=== PATIENT | female | born 1995 | race Caucasian/White ===

== ENCOUNTER 2017-10-26 11:51 | Inpatient (IN) ==
[2017-10-26 12:27] LABS: Basophils % 0.4 %; Eosinophils # 0.1 K/mcL (0.0-0.6); Eosinophils % 0.6 %; Hematocrit 34.8 % (35.3-44.9); Hemoglobin 10.7 g/dL (11.5-15.4); Immature Granulocytes % 0.5 % (0-4); Lymphocytes # 1.8 K/mcL (0.6-4.6); Lymphocytes % 21.6 %; Mean Corpuscular HGB Conc 30.7 g/dL (31.6-35.5); Mean Corpuscular Hemoglobin 25.4 pg (28.0-33.3); Mean Corpuscular Volume 82.7 fL (83.0-100.0); Mean Platelet Volume 10.7 fL (9.4-12.4); Monocytes # 0.8 K/mcL (0.0-1.3); Monocytes % 10.3 %; Neutrophils # 5.4 K/mcL (1.6-8.9); Platelet Count 213 K/mcL (140-400); Red Blood Count 4.21 M/mcL (3.82-4.97); Red Cell Distribution Width 18.9 % (11.5-14.5); Segmented Neutrophils % 66.6 %
[2017-10-26 12:33] LABS: Amphetamine Screen,Urine Negative ng/mL (Cutoff=1000); Barbiturate Screen,Urine Negative ng/mL (Cutoff=200); Benzodiazepines Screen,Urine Negative ng/mL (Cutoff=200); Cannabinoid Screen,Urine Negative ng/mL (Cutoff = 50); Cocaine Screen,Urine Negative ng/mL (Cutoff= 300); Opiate Screen,Urine Negative ng/mL (Cutoff=300); Phencyclidine Screen,Urine Negative ng/mL (Cutoff=25)
[2017-10-26 12:38] LABS: Protein/Creatinine Ratio,Urine 0.33 mg/mg (0.00-0.20)
[2017-10-26 12:40] LABS: Alanine Aminotransferase 8 Units/L (7-52); Aspartate Amino Transferase 12 Units/L (13-39); BUN/Creatinine Ratio 13 (6-26); Blood Urea Nitrogen 5 mg/dL (6-20); Lactate Dehydrogenase 118 Units/L (140-271); Uric Acid 4.2 mg/dL (2.3-7.6); eGFR For African Americans > 60 (> 60); eGFR For Non-African Americans > 60 (> 60)
--- NOTE | 2017-10-26 12:50 | OB/GYN History & Physical ---
Addendum entered and electronically signed by Shelia Martinez DO 12:23: This is a duplicated H&P. Can you please delete this from the medical record. Original Note: Date of Encounter: 11/03/17 Time of Encounter: 12:44 History of Present Illness HPI: Ms. Valencia is a 22 year old female presenting to the labor and delivery for elevated blood pressure. Patient was seen in the office and there was concern over elevated blood pressure today. Patient states the last 2 visits she has had elevated blood pressure. Today blood pressure was 174/120 and repeat was 146/88. Last week patient's blood pressure is 161/102 and repeat was 142/90. Patient has had no other complications at this . Does not have any past medical conditions. Currently taking iron and [place] vitamins. Patient denies any vaginal bleeding, cramping or discharge. Denies any urinary symptoms. Denies any fevers at home. Patient is group B negative. Patient did have to repeat glucose testing due to elevated one-hour period but three-hour testing was within normal limits. Patient is treponema and HIV negative. Patient is rubella immune. Patient is A +. Patient does state she has been having dizziness and headaches for the past week. She states once in a while she had a dizzy episode but thinks due to getting up too quickly. She does state over the past week she has had some headaches. She does not normally get headaches at home. She denies any chest pain or shortness of breath. She denies any seizure-like activity. She denies any focal neurological deficit. Past Med Surg Social Fam HX - Past Medical History Medical history: no medical history Psychiatric history: no psych history - Social History Smoking Status: Current every day smoker Smokeless Tobacco Status: No Alcohol use: none Drug use: none - Family History Mother Name: bin valencia Age: 45 Living Status: Still Living Hx Family Cardiac Disorders: Yes (htn,chf during preg) Hx Family Respiratory Disorders: No Hx Family Cancer: No Hx Family GI Disorders: No Hx Family Genitourinary Disorders: No Hx Family Endocrine Disorder: No Hx Family Musculoskeletal Disorders: No Hx Family Neuromuscular Disorders: No Hx Family Neurologic Disorders: No Hx Family HEENT Disorders: No Hx Family Autoimmune Disorders: No Hx Family Reproductive Disorders: No Hx Family Psychosocial Disorders: No Hx Family Medical Disorders: No Obstetrical History - Pregnancies : 1 Para: 0 Term: 0 : 0 Ab's: 0 Livin Medications and Allergies Vit #108/Iron/FA [ One Tablet] 1 each PO 10/26/17 [History] Acetaminophen [Tylenol] 650 mg PO Q6HR PRN tablet 10/29/17 [Rx] Benzocaine/Menthol [place] [Dermoplast [place]] 1 appl TP QID PRN aerosol 10/29/17 [Rx] Breast Pump [BREAST PUMP] 1 each .ROUTE AD #1 each 10/29/17 [Rx] Docusate [Colace] 100 mg PO BID #60 capsule 10/29/17 [Rx] Ferrous Sulfate 325 mg PO BIDWM #60 tablet 10/29/17 [Rx] Ibuprofen [Motrin] 600 mg PO Q6HR PRN #60 tablet 10/29/17 [Rx] Lanolin [Lansinoh] 1 appl TP QID PRN oint...g. 10/29/17 [Rx] Vit/FA 1 each PO DAILY tablet 10/29/17 [Rx] 3 Allergy/AdvReac Type Severity Reaction Status Date / Time sulfamethoxazole Allergy Rash Verified 01/22/16 14:17 [From Bactrim] trimethoprim [From Bactrim] Allergy Rash Verified 01/22/16 14:17 Review of System OB All systems PM: reviewed and no additional remarkable complaints except as stated Exam - Constitutional Constitutional: well developed, well nourished, no acute distress, average body habitus - HEENT HEENT: Normocephaly, Mucus Membranes Moist - Lungs Respiratory exam: CTAB - Cardiovascular Cardiovascular exam: RRR - Abdomen Abdomen: Present: bowel sounds normal, gravid, non tender - Extremities Extremities exam: normal inspection - Uterus Uterus exam: Present: normal size, normal contour Results Result Diagrams: 10/29/17 07:12 10/26/17 12:17 Abnormal lab results Hgb 10.7 g/dL (11.5-15.4) L 10/26/17 12:17 Hct 34.8 % (35.3-44.9) L 10/26/17 12:17 MCV 82.7 fL (83.0-100.0) L 10/26/17 12:17 MCH 25.4 pg (28.0-33.3) L 10/26/17 12:17 MCHC 30.7 g/dL (31.6-35.5) L 10/26/17 12:17 RDW 18.9 % (11.5-14.5) H 10/26/17 12:17 BUN 5 mg/dL (6-20) L 10/26/17 12:17 Creatinine 0.38 mg/dL (0.60-1.20) L 10/26/17 12:17 AST 12 Units/L (13-39) L 10/26/17 12:17 Lactate Dehydrogenase 118 Units/L (140-271) L 10/26/17 12:17 Protein/Creatinin Ratio 0.33 mg/mg (0.00-0.20) H 10/26/17 12:17 All other labs normal. - VTE Reasons for not Prescribing Prophylaxis: Treatment not Indicated - Low risk for VTE - Attending Attestation I did not examine this patient and do not agree with the documentation provided. An H+P was performed by Valencia Mcneil CNM. Please refer to it for further documentation.
[2017-10-26] MEDS ORDERED: Naloxone 0.4 MG/ML INJ IVP PRN (13:04)
[2017-10-26] MEDS ORDERED: Famotidine 20 MG/2 ML VIAL IVP PRN (13:04)
[2017-10-26] MEDS ORDERED: Ringers Solution, Lactated 1,000 ML IVC SCH (13:15)
--- NOTE | 2017-10-26 14:58 | Anesthesia Evaluation PreOp ---
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 Other Medical History: Denies Any Significant HX Anesthesia History: No Prior Anesthetic Complications (No family history of reactions to anesthetics) : Yes (37 plus 6, g1) Alcohol Use: none Drug use: none Medications and Allergies Ferrous Sulfate 325 mg PO DAILY 10/26/17 [History] Vit #108/Iron/FA [ One Tablet] 1 each PO 10/26/17 [History] 3 Allergy/AdvReac Type Severity Reaction Status Date / Time sulfamethoxazole Allergy Rash Verified 01/22/16 14:17 [From Bactrim] trimethoprim [From Bactrim] Allergy Rash Verified 01/22/16 14:17 - Meds/Allergy Pre-op Review Medications Reviewed: Yes Allergies Reviewed: Yes Beta Blockers on Current Med List: No Anesthesia Results - Labs 10/26/17 12:17 10/26/17 12:17 Anesthesia Exam O2 Sat Height 1.63 m Height 1.63 m Weight 37.557 kg Weight 82.8 kg bp 132/72 hr 98 Height: 64 Weight: 83 - HEENT Pupil (Motor): Pupils equal Mallampati: II Teeth: Normal Oral Opening: Greater than 3 - KNOCKOUT MACHINE OPERATOR LOC: Oriented KNOCKOUT MACHINE OPERATOR Motor: Normal RUE, Normal LUE, Normal RLE, Normal LLE, Normal Face KNOCKOUT MACHINE OPERATOR Sensory: Normal: RUE, LUE, RLE, LLE, Face - Cardiac Rhythm: Regular Murmur: None JVD: No Carotid Bruit: No - Pulmonary Breath Sounds: bilateral Clear Respiratory Effort: Symmetrical Anesthesia Assess/Plan ASA Score: 2 Modified Bethany Scale for Level of Consciousness: Cooperative, oriented, and tranquil Anesthetic Plan: Regional Autologous Blood: No Monitoring Plan: Standard Monitors Recovery Plan: PACU
--- NOTE | 2017-10-26 15:03 | OB/GYN History & Physical ---
Date of Encounter: 10/26/17 Time of Encounter: 13:30 Assessment and Plan (1) 37 weeks gestation of Current visit: Yes Status: Acute (2) induced hypertension Current visit: Yes Status: Acute Admit to L&D for induction of labor d/t PIH PIH labs Cervidil Pain control Anesthesia consult for potential epidural GBS - Anticipate vaginal delivery Discussed potential for long induction time Plan of care per consult with Dr. Lala Qualifiers: Trimester: third trimester Qualified Code(s): O13.3 - Gestational [ -induced] hypertension without significant proteinuria, third trimester History of Present Illness Chief complaint: Hypertension/facial swelling HPI: Ms. Valencia is a 22 year old who presents from Dr. Montoya's office with c/o hypertension in the office and proteinuria today. has been complicated by suspected macrosomia. Pt denies VB, LOF, discharge, contractions, vision changes, RUQ pain. Reports she is feeling relatively well today. Past Med Surg Social Fam HX - Past Medical History Medical history: no medical history Psychiatric history: no psych history - Social History Smoking Status: Current every day smoker Smokeless Tobacco Status: No Alcohol use: none Drug use: none - Family History Mother Name: bin valencia Age: 45 Living Status: Still Living Hx Family Cardiac Disorders: Yes (htn,chf during preg) Hx Family Respiratory Disorders: No Hx Family Cancer: No Hx Family GI Disorders: No Hx Family Genitourinary Disorders: No Hx Family Endocrine Disorder: No Hx Family Musculoskeletal Disorders: No Hx Family Neuromuscular Disorders: No Hx Family Neurologic Disorders: No Hx Family HEENT Disorders: No Hx Family Autoimmune Disorders: No Hx Family Reproductive Disorders: No Hx Family Psychosocial Disorders: No Hx Family Medical Disorders: No Obstetrical History - Pregnancies : 1 Para: 0 Term: 0 : 0 Ab's: 0 Livin Medications and Allergies Ferrous Sulfate 325 mg PO DAILY 10/26/17 [History] Vit #108/Iron/FA [ One Tablet] 1 each PO 10/26/17 [History] 3 Allergy/AdvReac Type Severity Reaction Status Date / Time sulfamethoxazole Allergy Rash Verified 01/22/16 14:17 [From Bactrim] trimethoprim [From Bactrim] Allergy Rash Verified 01/22/16 14:17 Review of System OB All systems PM: reviewed and no additional remarkable complaints except as stated Exam - Constitutional Constitutional: well developed, well nourished, no acute distress, mild distress - HEENT HEENT: PERRL, Mucus Membranes Moist - Neck Neck exam: full ROM, trachea midline - Lungs Respiratory exam: CTAB - Cardiovascular Cardiovascular exam: RRR, +S1, +S2 - Abdomen Abdomen: Present: bowel sounds normal, gravid, non tender - Extremities Extremities exam: full ROM, pedal edema Deep Tendon Reflex Grade: 2+ Normal Results Result Diagrams: 10/26/17 12:17 10/26/17 12:17 Abnormal lab results Hgb 10.7 g/dL (11.5-15.4) L 10/26/17 12:17 Hct 34.8 % (35.3-44.9) L 10/26/17 12:17 MCV 82.7 fL (83.0-100.0) L 10/26/17 12:17 MCH 25.4 pg (28.0-33.3) L 10/26/17 12:17 MCHC 30.7 g/dL (31.6-35.5) L 10/26/17 12:17 RDW 18.9 % (11.5-14.5) H 10/26/17 12:17 BUN 5 mg/dL (6-20) L 10/26/17 12:17 Creatinine 0.38 mg/dL (0.60-1.20) L 10/26/17 12:17 AST 12 Units/L (13-39) L 10/26/17 12:17 Lactate Dehydrogenase 118 Units/L (140-271) L 10/26/17 12:17 Protein/Creatinin Ratio 0.33 mg/mg (0.00-0.20) H 10/26/17 12:17 All other labs normal. - VTE Reasons for not Prescribing Prophylaxis: Treatment not Indicated - Low risk for VTE
[2017-10-26] MEDS: *HR* Nalbuphine 20 MG/ML AMPUL IVP PRN (22:08)
[2017-10-27] MEDS: *HR* Nalbuphine 20 MG/ML AMPUL IVP PRN (01:16)
[2017-10-27] MEDS ORDERED: Epidural Premix (fent/bupiv) 110 ML EP ONE ×4 (01:27→20:12)
[2017-10-27] MEDS ORDERED: EPHEDrine 50 MG/ML VIAL IVP PRN (02:02)
--- NOTE | 2017-10-27 02:06 | Anesthesia Procedures ---
Date of Encounter: 10/27/17 Time of Encounter: :30 Procedures: Anesthesia - Epidural/Spinal Patient ID/Chart reviewed: Yes Patient examined: Yes OB Eval: Contractions: Non-stressed pattern Consent Obtained: Yes Supplemental Oxygen: None/Room Air Site Prep: Aseptic Technique Patient position: upright Local Anesthetic: Lidocaine 1% Amount of Local Anesthetic used: 3 Touhy Needle Gauge: 18 Touhy Needle Depth (cm): 4 Catheter Depth at Skin (cm): 10 Test Dose (1.5% Lido + Epi): Volume given (mls): 3 Test Dose Result: Negative Loading Dose Administered: Thru Touhy Needle Infusion Med: 0.125% Bupivacaine w/ 2 mcg/ml Fentanyl Infusion Rate (mls/hr): 14 Interspace Used: L2-L3 Loss of Resistance (CHAIM): Yes Blood: No CSF: No Paresthesia: No
[2017-10-27] MEDS ORDERED: Epidural Premix (fent/bupiv) 110 ML EP SCH (02:15)
[2017-10-27] MEDS ORDERED: miSOPROStol 25 MCG TABLET PO PRN (06:00)
--- NOTE | 2017-10-27 06:18 | OB Labor Progress Note ---
Date of Encounter: 10/27/17 Time of Encounter: 06:15 Labor Progress Note - Subjective Subjective: Pt reports increase in contractions and pressure - Vital Signs Vital Signs: BP 117-136/86-88 P 80s-100s - Cervix Cervix: 2/70/-1 - Heart Tones Heart Tones: Category I tracing Baseline 130s Moderate variability Accelerations present - [place]: Contractions 2-4 - Plan Plan: Continue routine labor management GBS negative Pain controlled at this time May have epidural upon request Nubain for pain as needed per orders Administer cytotec 50mg po Consider pitocin after cytotec removal Anticipate vaginal delivery Dr. Lala aware of POC and agrees
--- NOTE | 2017-10-27 08:51 | OB Labor Progress Note ---
Date of Encounter: 10/27/17 Time of Encounter: 08:49 Labor Progress Note - Subjective Subjective: Resting comfortable in bed with epidural. - Cervix Cervix: 3/50/-2 - Heart Tones Heart Tones: 125/moderate/+accels/-decels - [place]: 2-4 - Interventions Interventions: Cervical voss placed - Plan Plan: Cervical voss Once cytotec time is complete transition to pitocin Plan of care discussed with Dr. hilda GREWAL
[2017-10-27] MEDS: Ondansetron 4 MG/2 ML VIAL IVP PRN ×2 (08:57→17:40)
--- NOTE | 2017-10-27 14:11 | OB Labor Progress Note ---
Date of Encounter: 10/27/17 Time of Encounter: 14:08 Labor Progress Note - Subjective Subjective: Pt resting comfortable with epidural. - Vital Signs Vital Signs: 125/74, 139/76 - Cervix Cervix: 4-5/50/-3 - Heart Tones Heart Tones: 120/moderate/+accels/-decels - [place]: 2-4 - Interventions Interventions: AROM for clear fluid and IUPC placed - Plan Plan: Start pitocin per policy Anticipate Dr. Cheng updated on plan of care
[2017-10-27] MEDS ORDERED: Oxytocin 20 units/ LR 1000 mL 20 UNIT/1,000 ML BAG IVC SCH (14:15)
--- NOTE | 2017-10-27 20:43 | OB Labor Progress Note ---
Date of Encounter: 10/27/17 Time of Encounter: 20:37 Labor Progress Note - Subjective Subjective: Comfortable with epidural - Vital Signs Vital Signs: 126/89 - Heart Tones Heart Tones: 120/moderate/+accels/early and variable. - [place]: q2 - Plan Plan: Continue pitocin per policy Anticipate
[2017-10-28] MEDS ORDERED: Lidocaine 1% 20 ML MDV ONE (04:12)
--- NOTE | 2017-10-28 04:53 | OB/GYN Procedure Note ---
Delivery - Delivery Date: 10/28/17 Provider: Leigh Ann Proctor (Juan) Intrapartum events: prolonged labor- > = 20hr Delivery induction: AROM, oxytocin, voss, misoprostol, cervidil Delivery monitor: external FHT, external uterine, internal FHT, internal uterine Anesthesia: local, epidural Estimated Blood Loss: 500 - (s) A Delivery Date: 10/28/17 Delivery Time: 03:58 Presentation: vertex Position: OA Route of delivery: Gender: Male Viability: Viable Pounds: 9 Ounces: 3 Weight Gram: 4175 kg at 1 minute: 8 at 5 mins: 9 Shoulder Dystocia: not encountered Specimens collected: cord blood Placenta: spontaneous Cord: 3 umbilical vessels - Repair Episiotomy: none Laceration Description: Perineal - 2nd Degree - Complications Delivery complications: none Delivery comments: Induction of labor with cervidil, cytotec, voss and pitocin, progressed to complete, began maternal bearing down efforts to of liveborn male, vertex delivered OA, shoulders and body easily followed, no nuchal cord or shoulder dystocia encountered. Vigorous placed on maternal abdomen APGARS 8/9. placenta delivered spontaneous (spann) complete on inspection,fundus massaged until firm. Pitocin started per policy. 2nd degree laceration repaired with 3-[address] Cheng at delivery for diagnosis of macrosomia. - Disposition Mom disposition: stable in LDR [place] disposition: stable in LDR
[2017-10-28] MEDS ORDERED: Oxytocin 20 units/ LR 1000 mL 20 UNIT/1,000 ML BAG IVC SCH (05:19)
[2017-10-28] MEDS ORDERED: Benzocaine/Menthol 56 GM AEROSOL SPRAY TP PRN (05:19)
[2017-10-28] MEDS ORDERED: Acetaminophen 325 MG TABLET PO PRN (05:19)
[2017-10-28] MEDS ORDERED: Lanolin 7 G OINT...G. TP PRN (05:19)
[2017-10-28] MEDS: Prenatal Vit/FA 1 EACH TABLET PO SCH (08:18)
[2017-10-28] MEDS: Ibuprofen 600 MG TABLET PO PRN ×2 (08:18→20:01)
[2017-10-29] MEDS: Ibuprofen 600 MG TABLET PO PRN (07:13)
[2017-10-29 07:32] LABS: Basophils % 0.4 %; Eosinophils # 0.1 K/mcL (0.0-0.6); Hematocrit 29.5 % (35.3-44.9); Immature Granulocytes % 0.6 % (0-4); Lymphocytes # 1.9 K/mcL (0.6-4.6); Lymphocytes % 18.5 %; Mean Corpuscular HGB Conc 30.2 g/dL (31.6-35.5); Mean Corpuscular Hemoglobin 25.4 pg (28.0-33.3); Mean Corpuscular Volume 84.3 fL (83.0-100.0); Mean Platelet Volume 10.9 fL (9.4-12.4); Monocytes % 9.6 %; Neutrophils # 7.1 K/mcL (1.6-8.9); Platelet Count 221 K/mcL (140-400); Red Cell Distribution Width 19.9 % (11.5-14.5); Segmented Neutrophils % 69.9 %
[2017-10-29 07:44] LABS: Hemoglobin 8.9 g/dL (11.5-15.4)
[2017-10-29 08:37] VITALS: BP 115/79
[2017-10-29] MEDS: Prenatal Vit/FA 1 EACH TABLET PO SCH (08:50)
--- NOTE | 2017-10-29 10:01 | Discharge Summary ---
Date of Encounter: 10/29/17 Time of Encounter: 09:59 - Discharge Diagnosis (1) Vaginal delivery Priority: Primary Status: Acute Comments: Meeting all milestones, pain well managed on po medication, desires discharge. (2) induced hypertension Priority: Primary Status: Acute Qualifiers: Trimester: third trimester Qualified Code(s): O13.3 - Gestational [ -induced] hypertension without significant proteinuria, third trimester - Discharge Medications Prescriptions: Ibuprofen [Motrin] 600 mg PO Q6HR PRN #60 tablet PRN Reason: Cramping Docusate [Colace] 100 mg PO BID #60 capsule Ferrous Sulfate 325 mg PO BIDWM #60 tablet Home Medications: Vit #108/Iron/FA [ One Tablet] 1 each PO 10/26/17 [History] Acetaminophen [Tylenol] 650 mg PO Q6HR PRN tablet 10/29/17 [Rx] Benzocaine/Menthol [place] [Dermoplast [place]] 1 appl TP QID PRN aerosol 10/29/17 [Rx] Breast Pump [BREAST PUMP] 1 each .ROUTE AD #1 each 10/29/17 [Rx] Docusate [Colace] 100 mg PO BID #60 capsule 10/29/17 [Rx] Ferrous Sulfate 325 mg PO BIDWM #60 tablet 10/29/17 [Rx] Ibuprofen [Motrin] 600 mg PO Q6HR PRN #60 tablet 10/29/17 [Rx] Lanolin [Lansinoh] 1 appl TP QID PRN oint...g. 10/29/17 [Rx] Vit/FA 1 each PO DAILY tablet 10/29/17 [Rx] Allergies/Adverse Reactions: 3 Allergy/AdvReac Type Severity Reaction Status Date / Time sulfamethoxazole Allergy Rash Verified 01/22/16 14:17 [From Bactrim] trimethoprim [From Bactrim] Allergy Rash Verified 01/22/16 14:17 Data Procedures and tests throughout hospitalization: Laboratory Tests 10/26/17 10/26/17 10/26/17 12:17 12:17 12:17 WBC 8.2 RBC 4.21 Hgb 10.7 L Hct 34.8 L MCV 82.7 L MCH 25.4 L MCHC 30.7 L RDW 18.9 H Plt Count 213 MPV 10.7 Immature Gran % 0.5 Seg Neutrophils % 66.6 Lymphocytes % 21.6 Monocytes % 10.3 Eosinophils % 0.6 Basophils % 0.4 Neutrophils # 5.4 Lymphocytes # 1.8 Monocytes # 0.8 Eosinophils # 0.1 Basophils # 0.0 BUN 5 L Creatinine 0.38 L Est GFR ( Amer) > 60 Est GFR (Non-Af Amer) > 60 BUN/Creatinine Ratio 13 Uric Acid 4.2 AST 12 L ALT 8 Lactate Dehydrogenase 118 L Urine Creatinine Protein/Creatinin Ratio Urine Total Protein Urine Opiates Screen Negative Ur Barbiturates Screen Negative Ur Phencyclidine Scrn Negative Ur Amphetamines Screen Negative U Benzodiazepines Scrn Negative Urine Cocaine Screen Negative U Marijuana (THC) Screen Negative 10/26/17 10/29/17 12:17 07:12 WBC 10.1 RBC 3.50 L Hgb 8.9 L D Hct 29.5 L MCV 84.3 MCH 25.4 L MCHC 30.2 L RDW 19.9 H Plt Count 221 MPV 10.9 Immature Gran % 0.6 Seg Neutrophils % 69.9 Lymphocytes % 18.5 Monocytes % 9.6 Eosinophils % 1.0 Basophils % 0.4 Neutrophils # 7.1 Lymphocytes # 1.9 Monocytes # 1.0 Eosinophils # 0.1 Basophils # 0.0 BUN Creatinine Est GFR ( Amer) Est GFR (Non-Af Amer) BUN/Creatinine Ratio Uric Acid AST ALT Lactate Dehydrogenase Urine Creatinine 96 Protein/Creatinin Ratio 0.33 H Urine Total Protein 32 Urine Opiates Screen Ur Barbiturates Screen Ur Phencyclidine Scrn Ur Amphetamines Screen U Benzodiazepines Scrn Urine Cocaine Screen U Marijuana (THC) Screen Labs on day of discharge: Labs from last 24 hours 10/29/17 07:12 WBC 10.1 RBC 3.50 L Hgb 8.9 L D Hct 29.5 L MCV 84.3 MCH 25.4 L MCHC 30.2 L RDW 19.9 H Plt Count 221 MPV 10.9 Immature Gran % 0.6 Seg Neutrophils % 69.9 Lymphocytes % 18.5 Monocytes % 9.6 Eosinophils % 1.0 Basophils % 0.4 Neutrophils # 7.1 Lymphocytes # 1.9 Monocytes # 1.0 Eosinophils # 0.1 Basophils # 0.0 Date of admission: 10/26/17 11:51 Primary care physician: Vernon Alex DO Consults: 10/28/17 05:19 Consult to Cardiac Care Unit Nurse [CONS] Routine Comment: Vaginal delivery, consult needed Discharging clinician: Leigh Ann Proctor Anticipated date of discharge: 10/29/17 - Patient Status Disposition: Home, Self-Care Condition: Good Functional capacity at discharge: independent ambulation Overall status at discharge: patient is back to baseline - Discharge Instructions Follow Up With: Vernon Alex DO [Primary Care Provider] - - Diet and Activity Activity: increase activity as tolerated Diet: regular diet Hospital Course Reason for admission: induction of labor Delivery: Episiotomy: none Laceration: 2nd degree Other procedures: none complications: none Discharge diagnosis: IUP at term delivered [place] baby: male Hospital course: Delivery - Delivery Date: 10/28/17 Provider: Leigh Ann Proctor ([place]) Intrapartum events: prolonged labor- > = 20hr Delivery induction: AROM, oxytocin, voss, misoprostol, cervidil Delivery monitor: external FHT, external uterine, internal FHT, internal uterine Anesthesia: local, epidural Estimated Blood Loss: 500 - (s) A Infant Delivery Date: 10/28/17 Infant Delivery Time: 03:58 Presentation: vertex Position: OA Route of delivery: Gender: Male Viability: Viable Pounds: 9 Ounces: 3 Weight Gram: 4175 kg at 1 minute: 8 at 5 mins: 9 Shoulder Dystocia: not encountered Specimens collected: cord blood Placenta: spontaneous Cord: 3 umbilical vessels - Repair Episiotomy: none Laceration Description: Perineal - 2nd Degree - Complications Delivery complications: none Delivery comments: Induction of labor with cervidil, cytotec, voss and pitocin, progressed to complete, began maternal bearing down efforts to of liveborn male, vertex delivered OA, shoulders and body easily followed, no nuchal cord or shoulder dystocia encountered. Vigorous infant placed on maternal abdomen APGARS 8/9. placenta delivered spontaneous (spann) complete on inspection,fundus massaged until firm. Pitocin started per policy. 2nd degree laceration repaired with 3-[address] Cheng at delivery for diagnosis of macrosomia. - Disposition Mom disposition: stable in PP and appropriate for discharge Time Attestation: Total time spent providing and/or coordinating discharge services: Time Spent: Less than 30 minutes Exam - Constitutional Vitals: Temp Pulse Resp BP Pulse Ox 98.3 F 103 12 115/79 96 10/29/17 08:36 10/29/17 08:36 10/29/17 08:36 10/29/17 08:36 10/29/17 08:36 General appearance IM: A&O X 3 - Respiratory Respiratory exam: Present: CTAB - Cardiovascular Cardiovascular exam IM: Present: RRR - GI/Abdominal GI/Abdominal exam IM: normal bowel sounds, soft - Uterine Tone: Firm Uterus Position: At Umbilicus - Extremities Exam Extremities exam IM: Present: normal capillary refill, normal inspection, pedal edema - Neurological Exam Neurological exam: normal gait, oriented X3 - Psychiatric Additional comments: Reports good mood.
== END 2017-10-29 11:41 | disposition home or self-care (01) | DRG 775 ==
LOC: 1NENULAB → OBSVTOIN 11:51 → 1NENUOBS 10-28 05:22
PROVIDERS: ADMIT Obstetrics & Gynecology; ATTEND Obstetrics & Gynecology

== ENCOUNTER 2019-01-23 17:40 | Inpatient (IN) ==
--- NOTE | 2019-01-23 18:36 | Emergency Department Note ---
Disposition Clinical Impression: Suicidal ideation, Depression Disposition: Admitted As Inpatient Condition: Fair Time of Disposition: 18:48 Psych HPI - General Chief Complaint: ED Psychiatric Symptoms Stated Complaint: Psych Time Seen by Provider: 01/23/19 17:44 Source: EMS Mode of arrival: EMS Limitations: no limitations Nursing Notes Reviewed: Yes Vital Signs Reviewed: Yes - History of Present Illness HPI Narrative: Patient presents for psychiatric evaluation. Patient is medically screen in outside facility patient has been describing depression. She delivered a baby 1 year ago.. She denies any other complaints or issues at this time. Pt complaint: suicidal ideation, feels depressed Onset (ago): day(s) Duration: constant History of similar episodes: Yes Improves with: none Worsens with: none Alleged intoxication: No Associated Psychiatric Symptoms: depression, suicidal ideation Associated symptoms: Reports: denies other symptoms Treatments prior to arrival: none Self harm or harm to others: admits thoughts of self harm - Related Data Allergies Allergy/AdvReac Type Severity Reaction Status Date / Time sulfamethoxazole Allergy Rash Verified 01/22/16 14:17 [From Bactrim] trimethoprim [From Bactrim] Allergy Rash Verified 01/22/16 14:17 All systems ED: reviewed and negative except as stated. Review of Systems: As Per HPI Constitutional: Denies: fever, chills, weakness ENT ED: Denies: congestion Cardiovascular: Denies: chest pain, palpitations, dyspnea on exertion, orthopnea Respiratory: Denies: cough, dyspnea, wheezes, hemoptysis Gastrointestinal: Denies: abdominal pain, nausea, vomiting, diarrhea Genitourinary: Denies: urgency, dysuria, frequency Musculoskeletal: Denies: back pain, neck pain Integumentary: Denies: rash Neurological: Denies: headache, weakness Psychiatric: Reports: depression, suicidal thoughts Endocrine: Denies: fatigue Past Medical History - Past Medical History Attestation: Yes The following information was validated with the patient. Source: patient Medical history: Reports: no medical history Surgical history: Reports: no surgical history, other ([place] teeth) Psychiatric history: Reports: no psych history - Social History Smoking Status: Current every day smoker Smokeless Tobacco Status: No Alcohol use: Reports: none Drug use: Reports: marijuana Physical Exam - General Limitations: no limitations General appearance: alert, in no apparent distress - ENT ENT exam: normal exam, normal oropharynx, mucous membranes moist - Neck Neck exam: Present: normal inspection, full ROM, trachea midline. Absent: tenderness, meningismus, lymphadenopathy - Chest Chest inspection: Present: normal inspection, symmetric chest wall rise. Absent: tenderness - Respiratory Respiratory exam: Present: normal lung sounds bilaterally. Absent: respiratory distress, accessory muscle use - Cardiovascular Cardiovascular exam: Present: regular rate, normal rhythm, normal heart sounds - Abdominal Exam Abdominal exam: Present: soft, Non-Tender, normal bowel sounds. Absent: tenderness, distention, guarding, rebound, rigidity, Odonnell's sign, Rovsing's sign, tenderness at McBurney's Point - Extremities Exam Extremities exam: Present: normal inspection, full ROM, normal capillary refill. Absent: tenderness - Back Exam Back exam: Present: normal inspection, full ROM. Absent: tenderness - Neurological Exam Neurological exam: Present: alert, oriented X3, CN II-XII intact, normal gait - Psychiatric Psychiatric exam: Present: depressed, suicidal ideation - Skin Skin exam: Present: warm, dry, intact, normal color Course Course Narrative: Patient seen and examined the time of arrival. See history of present illness. 23-year-old female presents emergency room with suicidal ideation. She was screened and evaluated outside facility and medically cleared. She is transferred to our facility for continuation of care and management. Patient had the psychiatric team contacted on arrival for their interpretation of the presentation. On my evaluation patient is resting in the bed. She is tearful. She does understand the context of her presentation this time. She does not have an active plan. She denies any ingestion or potential traumatic injury. The baby that she is caring for is at home with the father and is safe at this time. Patient feels safe taking care of the child. Vital signs are stable. Patient is comfortable. Repeat physical exam is unremarkable. Patient will be evaluated by the psychiatric team in the disposition determined. No other acute findings noted during this treatment course. Labs reviewed from the outside facility and they are positive for marijuana but otherwise no other acute abnormalities. - Reevaluation(s) Reevaluation #1: Patient is currently stable. Psychiatric team is evaluated. Patient will be admitted for continuation of care. No other acute issues at this time. Patient will be monitoring emergency room until admission process is completed Time: 18:46 Vital Signs Temperature 98.6 F 01/23/19 17:43 Pulse Rate 97 01/23/19 17:43 Respiratory Rate 18 01/23/19 17:43 Blood Pressure 118/90 01/23/19 17:43 O2 Sat by Pulse Oximetry 97 01/23/19 17:43 Temperature 98.6 F 01/23/19 17:43 Pulse Rate 97 01/23/19 17:43 Respiratory Rate 18 01/23/19 17:43 Blood Pressure 118/90 01/23/19 17:43 O2 Sat by Pulse Oximetry 97 01/23/19 17:43 Oxygen Delivery Oxygen Delivery Room Air Psych - MDM Narrative Medical decision making narrative: Suicidal ideation - Medical Records Medical records reviewed: Yes I reviewed the patient's medical records. - Lab Data Lab results reviewed: Yes I reviewed the patient's lab results. Psychiatric Medical Clearance - Medical Clearance Checklist Does the patient have a NEW psychiatric condition?: No Any abnormalities indicating possible medical illness?: No Any history of medical issues?: No Medical History: No Social History Section defined Any abnormal vital signs prior to transfer?: No Current Vitals: Last Vital Signs Temp 98.6 F 01/23/19 17:43 Pulse 97 01/23/19 17:43 Resp 18 01/23/19 17:43 BP 118/90 01/23/19 17:43 Pulse Ox 97 01/23/19 17:43 Is the patient intoxicated or cognitively impaired?: No Any abnormalities on the physical exam?: No Any abnormal labs?: No Does the patient require durable medical equiptment?: No Is the patient ambulatory?: Yes Is the patient a fall risk?: No Has the patient been medically cleared?: Yes Any acute medical condition require Tx prior to transfer?: No Statement of Medical Clearance: I have evaluated the patient, reviewed diagnostic information, and certify that the patient's medical condition is sufficiently stable that transfer to the psychiatric unit does not pose a significant risk of deterioration.
[2019-01-23] MEDS ORDERED: *HR* LORazepam 1 MG TABLET PO PRN (18:37)
[2019-01-23] MEDS ORDERED: Acetaminophen 325 MG TABLET PO PRN (18:37)
[2019-01-23] MEDS ORDERED: MOM Conc 10 ML UD.LIQ PO PRN (18:37)
[2019-01-23] MEDS ORDERED: Mag Hydrox/Al Hydrox/Simeth 30 ML UDC PO PRN (18:37)
[2019-01-23] MEDS ORDERED: *HR* LORazepam 2 MG/ML VIAL IM PRN (18:37)
[2019-01-23] MEDS ORDERED: Haloperidol Lactate 5 MG/ML VIAL IM PRN (18:37)
[2019-01-23] MEDS: traZODone 50 MG TABLET PO PRN (21:12)
[2019-01-23] MEDS: hydrOXYzine pamoate 25 MG CAPSULE PO PRN (21:12)
--- NOTE | 2019-01-24 09:25 | Psychiatry History & Physical ---
Date of Encounter: 01/24/19 Time of Encounter: 09:23 History of Present Illness Patient Stated Chief Complaint: "I am thinking of killing myself" Medicare Admission Attestation: For traditional Medicare patients the provided hospital inpatient services are reasonable and necessary and in the case of services not specified as inpatient-only under 42 CFR 419.22 (n), that they are appropriately provided as inpatient services in accordance 42 CFR 412.3. For Critical Access Hospital the patient may reasonably be expected to be discharged or transferred to a hospital within 96 hours after admission to the Critical Access Hospital. Admitted From: Home Plans for Post Hospital Care: Home History of Present Illness: Ms. Valencia is a 23 year old female who presented emergency room with kristy cidal ideation. She was screened and evaluated outside facility and medically cleared. She is transferred to our facility for continuation of care and management. She reports that she has a plan to cut herself with a knife. She reports that she has been staying home with her child who is one year and 3 months of age as well as her sister's 2-year-old daughter and 6-year-old son. She says she feels overwhelmed by this she sad with decreased interest, feelings of guilt and worthlessness, low energy, decreased interest, poor sleep, decreased appetite. She denies thoughts of harming the child or her niece or nephew or anyone else. She denies auditory or visual hallucinations or paranoia. She denies a history of manic symptoms. She reports anxiety with fear about leaving the house fear that she or her child may be killed. She reports occasional panic attacks with chest pain and "blanking out". She is tearful. She does understand the context of her presentation this time. She denies any ingestion or potential traumatic injury. The baby that she is caring for is at home with the father and is safe at this time. Patient feels safe taking care of the child. Past Med Surg Social Fam HX - Past Medical History Medical history: no medical history - Past Psychiatric History Psychiatric history: Denies: prior suicide attempt, previous psychiatric hospitalization Past psychiatric history details: Patient reports that she has had depression off and on since her childhood but it has been consistent since the of her child one year and 3 months ago. She said that she had wanted to seek treatment in the past but her parents were against this because her mother has previously abused anxiety medications. She said that in her freshman year of high school she had some cutting but said that this was to get attention and help from her family. She denies suicide attempts in the past. She has never seen a psychiatrist or therapist. She is never been in psychiatric hospitalization. Family psychiatric history: Yes Family Psychiatric History Details: Her mother has been diagnosed with bipolar disorder and anxiety and she abused her anxiety medications and alcohol. She said her sister also has anxiety and is on some medication. Family History of Suicide: None - Past Surgical History Surgical History: no surgical history, other ([place] teeth) - Social History Smoking Status: Light tobacco smoker Smokeless Tobacco Status: No Alcohol use: none Drug use: marijuana Occupational status: unemployed Current living situation: Home, With Family Activity Level: Independent ambulation Recent Out of Country Travel Within the Last 8 Weeks: No Exposure or Possible Exposure to Illness During Travel: No Additional social history: Patient lives in her parents house but they only live they are part of the time and travel back and forth from [place]. Her sister and her sister's 2 children and her brother also live in the home. She is not but is in a relationship with the child's father who is a full-time student. 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 She often has to to watch her sister's 2 children. - Family History Mother Adopted: [place]: bin valencia Age: 46 Family Member Ethnicity: Non- Living Status: Still Living Hx Family Cardiac Disorders: Yes (CHF) Hx Family Respiratory Disorders: No Hx Family Cancer: No Hx Family GI Disorders: No Hx Family Genitourinary Disorders: No Hx Family Endocrine Disorder: No Hx Family Musculoskeletal Disorders: No Hx Family Neuromuscular Disorders: No Hx Family Neurologic Disorders: No Hx Family HEENT Disorders: No Hx Family Autoimmune Disorders: No Hx Family Reproductive Disorders: No Hx Family Psychosocial Disorders: Yes (anxiety, bipolar) Hx Family Medical Disorders: No Medications & Allergies No Known Home Drugs 01/23/19 [History] Allergy/AdvReac Type Severity Reaction Status Date / Time sulfamethoxazole Allergy Rash Verified 01/23/19 19:35 [From Bactrim] trimethoprim [From Bactrim] Allergy Rash Verified 01/23/19 19:35 Review of Systems Constitutional: Denies: fever Eyes: Denies: eye pain Ears, Nose, Throat: Denies: ear pain Cardiovascular: Denies: chest pain Respiratory: Denies: cough Gastrointestinal: Denies: abdominal pain Genitourinary female: Denies: urgency Musculoskeletal: Denies: back pain Integumentary: Denies: rash Neurological: Denies: headache Psychiatric: Reports: depression, anxiety, abnormal sleep pattern, suicidal ideation, change in appetite, difficulty concentrating, hopelessness, panic attacks Endocrine: Denies: fatigue, heat or cold intolerance Hematologic/Lymphatic: Denies: easy bruising, lymphadenopathy Allergic/Immunologic: Denies: urticaria, itchy eyes Exam - HEENT Head exam IM: Present: atraumatic Eye exam IM: Present: normal appearance ENT exam IM: Present: mucous membranes moist - Neurological Neurological exam: Present: CN II-XII intact (Grossly) - Respiratory Respiratory exam IM: Absent: respiratory distress - GI/Abdominal GI/Abdominal exam IM: Present: no peritoneal signs - Extremities Extremities exam IM: Present: full ROM - Skin Skin exam IM: Absent: cyanosis - Constitutional Vitals: Temp Pulse Resp BP Pulse Ox 97.5 F L 75 16 124/89 98 01/24/19 09:00 01/24/19 09:00 01/24/19 09:00 01/24/19 09:00 01/24/19 09:00 General appearance: age & developmentally appropriate, disheveled - Musculoskeletal Gait: slow Station: relaxed Strength & Tone: normal for patient - Psychiatric Patient Orientation: Yes Person, Yes Time, Yes Place, Yes Circumstance Level of alertness: Alert Behavior: tearful Psychomotor activity: Slowed Eye Contact: Minimal Contact Mood Description: Depressed Patient description of mood: "Depressed" Affect description: congruent with mood Speech Volume: Soft/Quiet Speech pattern: normal rate Language & Vocabulary: consistent with education Thought Process: Intact Thought Content: Yes Suicidal ideation Perceptual Disturbances: No Reacting to internal stimuli, No Auditory hallucinations, No Visual hallucinations Attention Span Ability: Capable of Focused Attention Memory Description: Grossly Intact Patient Reliability: Reliable Historian Fund of knowledge: Yes abstraction ability, Yes average, Yes aware of current events Intelligence Estimate: Average Judgment: Limited Insight: Minimal Assessment and Plan (1) Depression Current visit: Yes Status: Acute Plan: Admit inpatient for safety and stabilization, Close observation, Suicide Precautions per unit protocol, Encourage participation in unit milieu, Group Therapy, Monitor sleep, Monitor appetite Additional Plan: We will switch patient from an obstacle for admission given her ongoing suicidal ideations. We will start Zoloft 50 mg by mouth every morning for her depression. His when necessary Vistaril and trazodone for anxiety and insomnia. 1.Interval hx Pt had an opportunity to ask questions and discuss current treatment plan. Supportive therapy was provided.Pt encouraged to consider group or individual therapy.Pt was in agreement with treatment plan..Pt was educated on the risks benefits and side effects of current medications and alternatives as well as the risks and benefits of no medication. Risks, benefits, side effects, alternatives discussed w/pt: Yes Patient agreeable to treatment: Yes Plans for Post Hospital Care: Home Estimated Length of Stay (Days): 3 Qualifiers: Depression Type: major depressive disorder Major depression recurrence: recurrent Active/Remission status: currently active Major depression episode severity: severe Psychotic features: without psychotic features Qualified Code(s): F33.2 - Major depressive disorder, recurrent severe without psychotic features
[2019-01-24 10:03] LABS: Basophils # 0.1 K/mcL (0.0-0.2); Basophils % 0.7 %; Eosinophils # 0.1 K/mcL (0.0-0.6); Hematocrit 41.5 % (35.3-44.9); Hemoglobin 13.9 g/dL (11.5-15.4); Immature Granulocytes % 0.3 % (0-4); Lymphocytes # 2.8 K/mcL (0.6-4.6); Lymphocytes % 22.2 %; Mean Corpuscular HGB Conc 33.5 g/dL (31.6-35.5); Mean Corpuscular Hemoglobin 29.7 pg (28.0-33.3); Mean Corpuscular Volume 88.7 fL (83.0-100.0); Mean Platelet Volume 10.2 fL (9.4-12.4); Monocytes # 0.7 K/mcL (0.0-1.3); Monocytes % 5.7 %; Neutrophils # 8.9 K/mcL (1.6-8.9); Platelet Count 355 K/mcL (140-400); Red Blood Count 4.68 M/mcL (3.82-4.97); Red Cell Distribution Width 13.3 % (11.5-14.5); Segmented Neutrophils % 70.1 %
[2019-01-24 10:44] LABS: Alanine Aminotransferase 19 Units/L (7-52); Albumin/Globulin Ratio 1.9 (1.1-2.2); Alkaline Phosphatase 49 Units/L (34-104); Aspartate Amino Transferase 12 Units/L (13-39); BUN/Creatinine Ratio 18 (6-26); Bilirubin,Total 0.6 mg/dL (0.3-1.0); Blood Urea Nitrogen 12 mg/dL (6-20); Calcium 10.2 mg/dL (8.6-10.3); Carbon Dioxide 24 mEq/L (23-29); Chloride 103 mEq/L (98-107); Globulin 2.7 g/dL (2.4-3.5); Glucose 118 mg/dL (70-105); Osmolality,Calculated 289 (280-300); Potassium 3.6 mEq/L (3.5-5.1); Sodium 139 mEq/L (136-145); Total Protein 7.7 g/dL (6.4-8.9); eGFR For Non-African Americans > 60 (> 60)
[2019-01-24 10:56] LABS: Thyroid Stimulating Hormone 1.097 mcIU/mL (0.340-5.600)
[2019-01-24] MEDS: traZODone 50 MG TABLET PO PRN (21:12)
[2019-01-24] MEDS: hydrOXYzine pamoate 25 MG CAPSULE PO PRN (21:12)
[2019-01-25] MEDS ORDERED: Nicotine 21 MG PATCH.TD24 TD SCH (09:00)
[2019-01-25 09:29] VITALS: BP 108/73
--- NOTE | 2019-01-25 09:43 | Discharge Summary ---
Date of Encounter: 01/25/19 Time of Encounter: 09:41 Diagnosis - Discharge Diagnosis (1) Depression Status: Acute Qualifiers: Depression Type: major depressive disorder Major depression recurrence: r ecurrent Active/Remission status: currently active Major depression episode severity: severe Psychotic features: without psychotic features Qualified Code(s): F33.2 - Major depressive disorder, recurrent severe without psychotic features Medications - Discharge Medications Prescriptions: hydrOXYzine pamoate [HydrOXYzine Pamoate] 25 mg PO TID PRN #45 capsule PRN Reason: Anxiety Sertraline [Zoloft] 50 mg PO DAILY #15 tablet traZODone [TraZODone] 50 mg PO HS PRN #15 tablet PRN Reason: Insomnia Sertraline [Zoloft] 50 mg PO DAILY #15 tablet 01/25/19 [Rx] hydrOXYzine pamoate [HydrOXYzine Pamoate] 25 mg PO TID PRN #45 capsule 01/25/19 [Rx] traZODone [TraZODone] 50 mg PO HS PRN #15 tablet 01/25/19 [Rx] Allergy/AdvReac Type Severity Reaction Status Date / Time sulfamethoxazole Allergy Rash Verified 01/23/19 19:35 [From Bactrim] trimethoprim [From Bactrim] Allergy Rash Verified 01/23/19 19:35 Results Procedures and tests throughout hospitalization: Completed Lab Orders Category Date Time Status Complete Blood Count [HEME] Routine Lab 01/24/19 09:51 Completed Comprehensive Metabolic Panel Routine Lab 01/24/19 09:51 Completed Thyroid Stimulating Hormone Routine Lab 01/24/19 09:51 Completed Laboratory Results - last 48 hr 01/24/19 01/24/19 09:51 09:51 WBC 12.6 H RBC 4.68 Hgb 13.9 Hct 41.5 MCV 88.7 MCH 29.7 MCHC 33.5 RDW 13.3 Plt Count 355 MPV 10.2 Immature Gran % 0.3 Seg Neutrophils % 70.1 Lymphocytes % 22.2 Monocytes % 5.7 Eosinophils % 1.0 Basophils % 0.7 Neutrophils # 8.9 Lymphocytes # 2.8 Monocytes # 0.7 Eosinophils # 0.1 Basophils # 0.1 Sodium 139 Potassium 3.6 Chloride 103 Carbon Dioxide 24 BUN 12 Creatinine 0.67 Est GFR ( Amer) > 60 Est GFR (Non-Af Amer) > 60 BUN/Creatinine Ratio 18 Glucose 118 H Calculated Osmolality 289 Calcium 10.2 Total Bilirubin 0.6 AST 12 L ALT 19 Alkaline Phosphatase 49 Serum Total Protein 7.7 Albumin 5.0 Globulin 2.7 Albumin/Globulin Ratio 1.9 TSH 1.097 Provider Date of admission: 01/23/19 18:37 Primary care physician: PCP NONE Discharging clinician: Lexi Molina Psychiatry Exam - Constitutional Vitals: Temp Pulse Resp BP Pulse Ox 97.8 F 84 18 108/73 96 01/25/19 09:00 01/25/19 09:00 01/25/19 09:00 01/25/19 09:00 01/25/19 09:00 General appearance: age & developmentally appropriate, well-groomed, well- nourished - Musculoskeletal Gait: normal Station: relaxed Strength & Tone: normal for patient - Psychiatric Patient Orientation: Yes Person, Yes Time, Yes Place Level of alertness: Alert Behavior: calm, cooperative Psychomotor activity: Normal Eye Contact: Maintains Eye Contact Mood Description: Euthymic/stable Patient description of mood: "Good" Affect description: congruent with mood, full range Speech Volume: Normal Speech pattern: normal rate, normal rhythm, normal tone, fluent, spontaneous Language & Vocabulary: consistent with education Thought Process: Linear, Goal Oriented Thought Content: No Suicidal ideation, No Homicidal ideation, No Overt delusions Perceptual Disturbances: No Auditory hallucinations, No Visual hallucinations Attention Span Ability: Capable of Focused Attention Memory Description: Grossly Intact Patient Reliability: Reliable Historian Fund of knowledge: Yes abstraction ability, Yes aware of current events Intelligence Estimate: Average Judgment: Good Insight: Full Hospital Course Hospital course: Ms. Valencia is a 23 year old female who was admitted for depression and suicidal thoughts related to stress at home. SHe is about 15 months post- . She was started on Zoloft for her depression and anxiety and prn vistaril and trazadone for anxiety and insomnia. She has no thoughts of haring her child or other children in her care. Patient was educated of diagnosis and the risk-benefit side effects of this alternative treatment options and was monitored for responsiveness and side effects. Mood anxiety sleep and appetite interest improved as did future orientation. Self-harm thoughts subsided, thinking was clear, there was no psychosis. Patient was able to attend both individual and group therapy sessions as well as meet with the psychiatrist daily and urged to discuss any medication or treatment issues or other concerns. The patient was educated primarily by verbal means about their diagnosis and manifestations in their life. The option for treatment including group and individual therapy programming was offered to the patient in addition to the use of medications with all their potential risks, benefits, and side effects as well as the risks of not taking medication and non-adhereance were discussed with the patient at length. The patient was given the opportunity to ask questions and was noted to participate in the treatment in the planning process. The patient felt ready and eager to be discharged from the inpatient psych iatric unit to continue on with treatment as an outpatient. The patient agreed that is they were safe for this disposition. The patient was considered to be able to participate in informed consent and decision making with respect to medical, legal, and financial issues of the time of discharge. At the time of discharge the patient adamantly denied any concerns for lethality including suicidal or homicidal thoughts ideations or plans and was future oriented toward ongoing mental health care. Time spent discussing smoking cessation with patient: 3 to 10 minutes Does patient wish to continue nicotine replacement upon disc: No (n/a) - Time Spent with Patient Total time spent providing and/or coordinating discharge services: 25 Less than 30 minutes Specific discharge activities: Interval history reviewed. Available labs reviewed . Psychotherapy provided. Patient had an opportunity to ask questions and address concerns. Patient was in agreement with the treatment plan. The risks benefits and side effects of medications were discussed with the patient, including alternatives and treatment. The patient was educated on the abstaining from any alcohol or illicit substances, following up with all scheduled appointments, and taking all medications as prescribed. Assessment and Plan - Patient/Caregiver Discharge Instructions Activity: resume usual activities as tolerated Diet: regular diet Additional Instructions: Continue current medications. Follow up with outpatient mental health. Encourage continued therapy in a group or individual setting. The patient was discharged to home. - Follow up Plan Follow up with: NONE,PCP [Primary Care Provider] - Functional capacity at discharge: independent ambulation Overall status at discharge: Stable Disposition: Home, Self-Care Quality - Multiple Antipsychotics Patient discharged on 2 or more antipsychotic medications: No Procedures - Procedures Procedures: Medication Management, Crisis Stabilization, Supportive Therapy, Group Therapy, Psychoeducational Therapy
== END 2019-01-25 15:15 | disposition home or self-care (01) | DRG 885 ==
LOC: EMEROOARM 17:40 → 1ANU 17:40
PROVIDERS: ADMIT Psychiatry & Neurology Psychiatry; ATTEND Psychiatry & Neurology Psychiatry

== ENCOUNTER 2020-12-23 10:00 | Inpatient (IN) ==
[2020-12-23] MEDS ORDERED: Naloxone 0.4 MG/ML INJ IVP PRN (10:31)
[2020-12-23] MEDS ORDERED: *HR* Nalbuphine 10 MG/ML AMPUL IV PRN (10:31)
[2020-12-23] MEDS ORDERED: Ondansetron 4 MG/2 ML VIAL IVP PRN (10:31)
[2020-12-23] MEDS ORDERED: Famotidine 20 MG/2 ML VIAL IVP PRN (10:31)
[2020-12-23] MEDS ORDERED: Penicillin G Potassium 5,000,000 UNIT in 0.9 % Sodium Chloride Mini Bag 100 ML IVPB ONE (10:36)
[2020-12-23 11:13] LABS: Basophils % 0.4 %; Eosinophils # 0.1 K/mcL (0.0-0.6); Eosinophils % 0.7 %; Hematocrit 35.5 % (35.3-44.9); Hemoglobin 11.7 g/dL (11.5-15.4); Immature Granulocytes % 0.3 % (0-4); Lymphocytes # 1.5 K/mcL (0.6-4.6); Lymphocytes % 21.8 %; Mean Corpuscular Volume 87.9 fL (83.0-100.0); Mean Platelet Volume 10.6 fL (9.4-12.4); Monocytes # 0.5 K/mcL (0.0-1.3); Monocytes % 7.3 %; Neutrophils # 4.8 K/mcL (1.6-8.9); Platelet Count 220 K/mcL (140-400); Red Blood Count 4.04 M/mcL (3.82-4.97); Red Cell Distribution Width 15.5 % (11.5-14.5); Segmented Neutrophils % 69.5 %
[2020-12-23 11:23] LABS: Amphetamine Screen,Urine Negative ng/mL (Cutoff=1000); Barbiturate Screen,Urine Negative ng/mL (Cutoff=200); Benzodiazepines Screen,Urine Negative ng/mL (Cutoff=200); Cannabinoid Screen,Urine Positive ng/mL (Cutoff = 50); Cocaine Screen,Urine Negative ng/mL (Cutoff= 300); Opiate Screen,Urine Negative ng/mL (Cutoff=300); Phencyclidine Screen,Urine Negative ng/mL (Cutoff=25)
[2020-12-23] MEDS: Ringers Solution, Lactated 1,000 ML IVC SCH ×3 (11:40→23:00)
[2020-12-23] MEDS: Oxytocin 20 units/ LR 1000 mL 20 UNIT/1,000 ML BAG IVC SCH (12:04)
[2020-12-23 12:42] LABS: Influenza A PCR Negative (Negative); Influenza B PCR Negative (Negative); Resp. Syncytial Virus PCR Negative (Negative); SARS-CoV-2 by PCR (In House) Negative (Negative)
[2020-12-23] MEDS ORDERED: Bupivacaine-MPF 0.25% 10 ML VIAL ONE (13:51)
[2020-12-23] MEDS ORDERED: *HR* FentaNYL (PF) 100 MCG/2 ML VIAL ONE (13:51)
[2020-12-23] MEDS ORDERED: EPHEDrine 50 MG/ML VIAL IVP PRN (15:26)
[2020-12-23] MEDS ORDERED: Bupivacaine-MPF 0.25% 10 ML VIAL EP ONE (15:26)
[2020-12-23] MEDS ORDERED: *HR* FentaNYL (PF) 100 MCG/2 ML VIAL EP ONE (15:26)
[2020-12-23] MEDS ORDERED: Epidural Premix (fent/bupiv) 110 ML EP SCH (15:30)
[2020-12-23] MEDS: Penicillin G Potassium 2,500,000 UNIT in 0.9 % Sodium Chloride 100 ML IVPB SCH ×2 (15:44→19:50)
[2020-12-24] MEDS: Ringers Solution, Lactated 1,000 ML IVC SCH ×2 (00:23→02:30)
[2020-12-24] MEDS: Penicillin G Potassium 2,500,000 UNIT in 0.9 % Sodium Chloride 100 ML IVPB SCH (00:29)
[2020-12-24] MEDS: Oxytocin 20 units/ LR 1000 mL 20 UNIT/1,000 ML BAG IVC SCH (04:23)
[2020-12-24] MEDS ORDERED: Oxytocin 20 units/ LR 1000 mL 20 UNIT/1,000 ML BAG IVC SCH (04:30)
[2020-12-24] MEDS ORDERED: Benzocaine/Menthol 56 GM AEROSOL SPRAY TP PRN (04:30)
[2020-12-24] MEDS: Ibuprofen 600 MG TABLET PO PRN ×2 (05:18→18:20)
[2020-12-24] MEDS: Prenatal Vit/FA 1 EACH TABLET PO SCH (08:35)
[2020-12-24] MEDS: Acetaminophen 325 MG TABLET PO PRN ×2 (08:35→20:03)
[2020-12-24] MEDS: Lanolin 7 G OINT...G. TP PRN (20:04)
[2020-12-25 04:56] LABS: Basophils % 0.4 %; Eosinophils # 0.1 K/mcL (0.0-0.6); Eosinophils % 1.2 %; Hematocrit 33.3 % (35.3-44.9); Hemoglobin 10.8 g/dL (11.5-15.4); Immature Granulocytes % 0.2 % (0-4); Lymphocytes # 2.5 K/mcL (0.6-4.6); Mean Corpuscular HGB Conc 32.4 g/dL (31.6-35.5); Mean Corpuscular Hemoglobin 29.2 pg (28.0-33.3); Monocytes # 0.8 K/mcL (0.0-1.3); Monocytes % 7.9 %; Neutrophils # 6.6 K/mcL (1.6-8.9); Platelet Count 214 K/mcL (140-400); Red Cell Distribution Width 15.8 % (11.5-14.5); Segmented Neutrophils % 65.3 %
[2020-12-25 08:04] VITALS: BP 119/77
[2020-12-25] MEDS: Prenatal Vit/FA 1 EACH TABLET PO SCH (08:35)
[2020-12-25] MEDS: Ibuprofen 600 MG TABLET PO PRN (08:35)
[2020-12-25] MEDS: Lanolin 7 G OINT...G. TP PRN (08:35)
== END 2020-12-25 12:30 | disposition home or self-care (01) | DRG 806 ==
LOC: 1NENULAB 10:09 → 1NENUOBS 12-24 06:09
PROVIDERS: ADMIT Obstetrics & Gynecology; ATTEND Obstetrics & Gynecology